=== PATIENT | male | born 1970 | race Caucasian/White ===

== ENCOUNTER 2017-09-10 19:46 | Inpatient (IN) | payer OTHER ==
[~2017-09-10] VITALS: Ht 182.9 cm; Wt 112.7 kg
[~2017-09-10 19:46] MED LIST: BENADRYL ALLERG25 MG PO; LISINOPRIL-HCT1 EAC3 PO; LORTAB 5-325 M1 EACH PO; MEDROL DOSEPAK4 MG PO; MILK OF MAGN PO; NAPROXEN500 MG PO; OXYCODONE HCL5 MG PO; TRIAMCINOLONE A60 M1 TP; ZANTAC150 MG PO; ZOFRAN4 MG PO
[2017-09-10 21:54] LABS: HEMATOCRIT 38.4 % (38.0-50.0); HEMOGLOBIN 12.3 G/DL (12.5-16.6); MCH 27.1 PG (29.0-34.0); MCV 84.6 FL (86-99); PLATELET COUNT 180 K/uL (156-360); RBC DIS.WIDTH-CV 15.9 % (11.8-14.6); RBC DIS.WIDTH-SD 48.8 % (39-53); RED BLOOD COUNT 4.54 M/uL (4.00-5.50); WHITE BLOOD COUNT 14.1 K/uL (4.1-10.2)
[2017-09-10 22:04] LABS: ALBUMIN 3.8 g/dL (3.2-4.8); CHLORIDE 104 mEq/L (99-109); POTASSIUM 4.2 mEq/L (3.7-5.4); SODIUM 143 mEq/L (136-147)
[2017-09-10 22:06] LABS: GLUCOSE 122 mg/dL (70-99); TOTAL PROTEIN 7.6 g/dL (6.4-8.3)
[2017-09-10 22:08] LABS: TOTAL BILIRUBIN 0.7 mg/dL (0.0-1.0)
[2017-09-10 22:10] LABS: ALKALINE PHOSPHATASE 182 IU/L (3-129); CREATININE 0.8 mg/dL (0.6-1.3); GFR ESTIMATE (CALCULATED) > 59 mL/min/ (58.99-99999)
[2017-09-10 22:11] LABS: UREA NITROGEN (BUN) 11 mg/dL (9-23)
[2017-09-10 22:12] LABS: AST (GOT) 24 IU/L (2-34)
[2017-09-10 22:13] LABS: ALT (GPT) 12 IU/L (3-49); LIPASE 49 U/L (1.0-51.0)
[2017-09-10 22:15] LABS: TROP-I INTERPRETATION NEGATIVE; TROPONIN-I < 0.01 ng/mL (0.0-0.30)
[2017-09-11] VITALS (7 sets, daily range): BP systolic 109–156; BP diastolic 71–101
[2017-09-11] MEDS ORDERED: COREG12.5 M1 PO (00:20)
[2017-09-11 03:02] LABS: APPEARANCE CLEAR ((CLEAR)); BILIRUBIN NEGATIVE; BLOOD NEGATIVE; COLOR STRAW ((YELLOW)); GLUCOSE (STRIP) NEGATIVE; KETONES NEGATIVE; LEUKOCYTES NEGATIVE; NITRITE NEGATIVE; PROTEIN (STRIP) NEGATIVE; SPECIFIC GRAVITY 1.008 (1.000-1.030); UCUL ADDED? NO; UROBILINOGEN 0.2 MG/DL (0.2-1.0)
[2017-09-11 03:17] LABS: TROP-I INTERPRETATION NEGATIVE; TROPONIN-I < 0.01 ng/mL (0.0-0.30)
[2017-09-11 08:50] LABS: HEMATOCRIT 38.4 % (38.0-50.0); HEMOGLOBIN 12.2 G/DL (12.5-16.6); MCH 26.8 PG (29.0-34.0); MCHC 31.8 G/DL (30.0-36.0); MCV 84.2 FL (86-99); PLATELET COUNT 185 K/uL (156-360); RBC DIS.WIDTH-CV 15.9 % (11.8-14.6); RBC DIS.WIDTH-SD 47.6 % (39-53); RED BLOOD COUNT 4.56 M/uL (4.00-5.50); WHITE BLOOD COUNT 13.7 K/uL (4.1-10.2)
[2017-09-11 09:12] LABS: ALBUMIN 3.7 G/DL (3.2-4.8); ALKALINE PHOSPHATASE 157 IU/L (3-129); ALT (GPT) 11 IU/L (3-49); AST (GOT) 17 IU/L (2-34); CHLORIDE 101 MEQ/L (99-109); CREATININE 0.7 MG/DL (0.6-1.3); GFR ESTIMATE (CALCULATED) > 59 mL/min/ (58.99-99999); POTASSIUM 4.3 MEQ/L (3.7-5.4); SODIUM 140 MEQ/L (136-147); TOTAL BILIRUBIN 0.8 MG/DL (0.0-1.0); TOTAL PROTEIN 7.6 G/DL (6.4-8.3); UREA NITROGEN (BUN) 10 mg/dL (9-23)
[2017-09-11 09:19] LABS: GLUCOSE 91 mg/dL (70-99)
[2017-09-11 09:21] LABS: TROP-I INTERPRETATION NEGATIVE; TROPONIN-I < 0.01 ng/mL (0.0-0.30)
[2017-09-11 14:15] LABS: HEMOGLOBIN A1c (GLYCOHEMOGLOB) 5.8 % (Below 5.7)
[2017-09-12 03:48] VITALS: BP 133/71
[2017-09-12 06:36] LABS: HEMATOCRIT 38.7 % (38.0-50.0); HEMOGLOBIN 12.1 G/DL (12.5-16.6); RED BLOOD COUNT 4.52 M/uL (4.00-5.50); WHITE BLOOD COUNT 14.4 K/uL (4.1-10.2)
[2017-09-12 06:37] LABS: MCH 26.8 PG (29.0-34.0); MCHC 31.3 G/DL (30.0-36.0); MCV 85.6 FL (86-99); PLATELET COUNT 185 K/uL (156-360); RBC DIS.WIDTH-CV 15.8 % (11.8-14.6); RBC DIS.WIDTH-SD 49.2 % (39-53)
[2017-09-12 06:56] LABS: CHLORIDE 100 MEQ/L (99-109); CREATININE 0.7 MG/DL (0.6-1.3); GFR ESTIMATE (CALCULATED) > 59 mL/min/ (58.99-99999); GLUCOSE 103 mg/dL (70-99); POTASSIUM 4.4 MEQ/L (3.7-5.4); SODIUM 140 MEQ/L (136-147); UREA NITROGEN (BUN) 11 mg/dL (9-23)
[2017-09-12 07:29] LABS: ABS NEUTROPHIL COUNT 8.1; ANISOCYTOSIS 1+; ATYPICAL LYMPHOCYTE 10.5 %; BAND NEUTROPHILS 6.1 % (0-8.0); EOSINOPHIL ABS CT 0.1; EOSINOPHILS 0.9 % (0-5.0); LYMPHOCYTES 30.7 % (15.0-45.0); MICROCYTOSIS 1+; MONOCYTES 1.8 % (0-9.0); PLAT.SUFFICIENCY ADEQUATE; POLYCHROMASIA 1+; SMUDGE CELLS 21.1
[2017-09-12 07:34] VITALS: BP 147/87
[2017-09-12] MEDS ORDERED: NICOTINE PATCH1 EAC2 TD (11:54)
[2017-09-12] MEDS ORDERED: DOCUSATE SODIU100 MG PO (11:55)
[2017-09-12] MEDS ORDERED: AMLODIPINE BESYL5 MG PO (11:55)
[2017-09-12] MEDS ORDERED: FUROSEMIDE20 MG PO (11:55)
[2017-09-12] MEDS ORDERED: POLYETHYLENE GL17 GM PO (11:55)
[2017-09-12] MEDS ORDERED: COREG12.5 M1 PO (11:56)
[2017-09-12] MEDS ORDERED: KLOR-CON SPRINK8 MEQ PO (11:59)
[2017-09-12 12:41] VITALS: BP 157/85
== END 2017-09-12 14:01 | disposition home or self-care (01) | DRG 293 ==
LOC: EME 19:46 → EDOF 09-11 02:11 → ENRESERV 09-11 02:13 → 5SOUTH 09-11 03:23 → ENPENDDIS 09-12 12:10 → 5SOUTH 09-12 14:01
PROVIDERS: Internal Medicine; Physician Assistant Medical
DX: I11.0 Hypertensive heart disease with heart failure (principal); I50.31 Acute diastolic (congestive) heart failure; F17.210 Nicotine dependence, cigarettes, uncomplicated; E66.01 Morbid (severe) obesity due to excess calories; Z68.33 Body mass index [BMI] 33.0-33.9, adult; R73.9 Hyperglycemia, unspecified; K59.09 Other constipation; R14.0 Abdominal distension (gaseous); R53.83 Other fatigue
CPT/HCPCS: 74022; 80048; 80053; 81003; 83036; 83690; 83880; 84443; 84484; 85025; 85027; 93005; 93306; 99281; 99285; J1940